=== PATIENT | female | born 1985 | race Caucasian/White ===

== ENCOUNTER 2021-08-21 08:03 | Emergency (ER) | payer OTHER | END 2021-08-21 08:27 | disposition home or self-care (01) | LOC: ERS 08:03 | DX: M54.5 Low back pain (principal) | CPT/HCPCS: 99283 ==

== ENCOUNTER 2023-12-25 07:00 | Outpatient (CLI) | payer BC | END 2023-12-25 07:01 | disposition home or self-care (01) | LOC: BICULT 07:00 | PROVIDERS: ATTEND Student in an Organized Health Care Education/Training Program | DX: R10.13 Epigastric pain (principal) | CPT/HCPCS: 76705 ==

== ENCOUNTER 2024-12-06 07:34 | Emergency (ER) | payer BC, SELFPAY ==
[2024-12-06] MEDS ORDERED: Ibuprofen 200 MG TAB ONE (08:10)
== END 2024-12-06 08:17 | disposition home or self-care (01) ==
LOC: ERS 07:34
DX: S46.912A Strain of unspecified muscle, fascia and tendon at shoulder and upper arm level, left arm, initial encounter (principal); X50.1XXA Overexertion from prolonged static or awkward postures, initial encounter; Y93.89 Activity, other specified; Y92.239 Unspecified place in hospital as the place of occurrence of the external cause
CPT/HCPCS: 99283